=== PATIENT | male | born 1970 ===

== ENCOUNTER 2017-07-20 12:12 | Emergency (ER) | payer MEDICAID, OTHER ==
[2017-07-20 12:12] VITALS: BMI 27.3
[2017-07-20 12:25] VITALS: BP 119/79; TEMP 98.5
[2017-07-20 13:53] VITALS: PULSE 70; RESP 16; O2SAT 100
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
--- NOTE | 2017-07-20 15:03 | RAD ---
Chest and right ribs four views History: Pain. Evaluate for fracture. Comparison: None available. Findings: No focal infiltrate or effusion. No evidence for pneumothorax. Heart size within normal limits. Degenerative changes in the spine and shoulders. Question mild cortical irregularity of the right 5th rib which may represent nondisplaced osseous injury. Impression: Question mild cortical irregularity of the right 5th rib which may represent nondisplaced injury. Correlation with chest CT may be helpful if clinically indicated.
== END 2017-07-20 13:52 | disposition home or self-care (01) ==
LOC: C.ER 12:12
DX: S22.31XA Fracture of one rib, right side, initial encounter for closed fracture (principal); Y09 Assault by unspecified means

== ENCOUNTER 2018-04-20 17:00 | Emergency (ER) | payer MEDICAID, OTHER ==
[2018-04-20 17:00] VITALS: BMI 27.3
[2018-04-20 17:16] VITALS: O2SAT 98
[2018-04-20] MEDS ORDERED: Alum-Mag Hydrox-Simethicone Susp (30 mL) PO STA (19:12)
--- NOTE | 2018-04-20 19:20 | C.PDOC ---
History Of Present Illness <Juan Marquez E - Last Filed: 04/20/18 19:11> <Drea Corral P - Last Filed: 04/20/18 20:04> PGY-[address] Marquez. 47 year old male with PMHx of HIV (on HAART therapy) and bipolar disorder presents to ED complaining of abdominal pain and diarrhea that began yesterday after eating [employer]. Abdominal pain is diffuse and described as cramping. Diarrhea is watery and non-bloody. There have been 15 episodes of diarrhea per day. Patient has been able to tolerate crackers and water. Patient is compliant with his HIV medications and follows up with AARTI Fowler. His last appointment was one month ago and reports CD4 of 700 and undetectable viral load. Patient denies fever, chills, nausea, vomiting, hematemasis, bloody stools , weakness, lightheadedness, shortness of breath, cough and chest pain. (Drea Corral) <Juan Marquez E - Last Filed: 04/20/18 19:11> <Drea Corral P - Last Filed: 04/20/18 20:04> Time Seen by Provider: 04/20/18 18:42 Chief Complaint (Nursing): Abdominal Pain Past Medical History - Medical History PMH: Anxiety, Asthma, Back Problems (bulging disks), Gastritis, HIV, Kidney Stones, Chronic Kidney Disease Family History: States: Unknown Family Hx - Social History Hx Alcohol Use: Yes Hx Substance Use: No - Immunization History Hx Tetanus Toxoid Vaccination: No Hx Influenza Vaccination: No Hx Pneumococcal Vaccination: No <Juan Marquez E - Last Filed: 04/20/18 19:11> Vital Signs: Last Vital Signs Temp 98.4 F 04/20/18 19:42 Pulse 76 04/20/18 19:42 Resp 20 04/20/18 19:42 BP 121/70 04/20/18 19:42 Pulse Ox 98 04/20/18 19:42 Review Of Systems Constitutional: Negative for: Fever, Chills, Sweats, Weakness Cardiovascular: Negative for: Chest Pain, Palpitations, Edema Respiratory: Negative for: Cough, Shortness of Breath, Hemoptysis Gastrointestinal: Positive for: Abdominal Pain, Diarrhea. Negative for: Nausea , Vomiting, Constipation, Melena, Hematochezia, Hematemesis Genitourinary: Negative for: Dysuria, Frequency Musculoskeletal: Negative for: Neck Pain, Shoulder Pain, Arm Pain Skin: Negative for: Rash <Drea Corral P - Last Filed: 04/20/18 20:04> Physical Exam - Physical Exam Appears: Well, Non-toxic, No Acute Distress Skin: Normal Color, Warm, Dry Head: Atraumatic, Normacephalic Eye(s): bilateral: Normal Inspection, PERRL Nose: Normal Throat: Normal Neck: Normal, Normal ROM, Supple Chest: Symmetrical Cardiovascular: Rhythm Regular Respiratory: Normal Breath Sounds, No Decreased Breath Sounds, No Accessory Muscle Use, No Rales, No Rhonchi Gastrointestinal/Abdominal: Soft, No Tenderness, No Organomegaly, No Guarding, No Rebound, Ascites (non-distended) Extremity: Normal ROM, No Pedal Edema Neurological/Psych: Oriented x3, Normal Speech <Yasemin Corralissa P - Last Filed: 04/20/18 20:04> ED Course And Treatment O2 Sat by Pulse Oximetry: 98 <Juan Marquez E - Last Filed: 04/20/18 19:11> Pulse Ox Interpretation: Normal <Drea Corral P - Last Filed: 04/20/18 20:04> Medical Decision Making <Juan Marquez E - Last Filed: 04/20/18 19:11> <Drea Corral P - Last Filed: 04/20/18 20:04> Medical Decision Making: Patient with CD4 Tcell count of 700 and undetectable viral load. Low suspicion of opportunistic infection. Treat as immunocompetent. Plan: - Bentyl, Pepcid, Maalox (Yasemin Corralissa P) Disposition Doctor Will See Patient In The: Office Counseled Patient/Family Regarding: Studies Performed, Diagnosis - Disposition Disposition Time: 19:12 <Juan Marquez E - Last Filed: 04/20/18 19:11> <Drea Corral P - Last Filed: 04/20/18 20:04> - Disposition Referrals: Cristiana Wright MD [Staff Provider] - Erik Barrera MD [Staff Provider] - Disposition: HOME/ ROUTINE Condition: GOOD Additional Instructions: Pope/BRAT diet: Bananas, white rice, applsauce, toast/Bread Continue Maalox 30 cc's Bentyl 10 mg tab every 8 hours as needed Pepcid 20 mg every 12 hours for 1 week (9AM and 9PM) Drink plenty of fluids/Gatorade Follow-up with DR. Parada/Bruce as needed. Prescriptions: Dicyclomine [Dicyclomine HCl] 10 mg PO Q8H PRN #10 cap PRN Reason: Diarrhea Instructions: Diarrhea and Traveler's Diarrhea, Adult (DC) Forms: [employer] (Turkmen) - Clinical Impression Clinical Impression: Diarrhea
[2018-04-20] MEDS ORDERED: Aluminum Hydroxide/Magnesium Hydroxide Susp (30 mL) ONE (19:22)
[2018-04-20 19:44] VITALS: BP 121/70; PULSE 76; RESP 20; TEMP 98.4
== END 2018-04-20 19:42 | disposition home or self-care (01) ==
LOC: C.ER 17:00
DX: R19.7 Diarrhea, unspecified (principal); N18.9 Chronic kidney disease, unspecified